=== PATIENT | male | born 1980 | race Caucasian/White ===

== ENCOUNTER 2018-01-03 21:41 | Emergency (ER) | payer MEDICAID ==
[~2018-01-03] VITALS: Ht 398.8 cm; Wt 73.0 kg
[2018-01-04 02:06] LABS: microscopic required? NO
[2018-01-04 02:19] LABS: urine erythrocyte NEGATIVE (NEGATIVE)
[2018-01-04 05:32] VITALS: BP 111/63
[2018-01-05 04:24] LABS: RAPID PLASMA REAGIN Non Reactive (Non Reactive)
== END 2018-01-04 05:52 | disposition home or self-care (01) ==
LOC: ED 21:41
PROVIDERS: Emergency Medicine
DX: N34.1 Nonspecific urethritis (principal); R51 Headache; L30.9 Dermatitis, unspecified
CPT/HCPCS: 87491; 87591; J0561; J0696